=== PATIENT | female | born 1955 | race Caucasian/White ===

== ENCOUNTER 2016-05-24 12:20 | Inpatient (IN) | payer OTHER ==
[~2016-05-24 12:20] MED LIST: BACITRACIN 50,000 UNITS/10 ML SYR IRR ONE; BUPIVACAINE 0.25% 30 ML SDV ONE; BUPIVACAINE/EPI 0.25% 30 ML SDV ONE; THROMBIN (RECOMBINANT) 5,000 UNIT VIAL TP ONE
[2016-05-24] MEDS ORDERED: LR 1,000 ML IV ONE (12:55)
[2016-05-24] MEDS ORDERED: LIDOCAINE 1% 5 ML SDV ID PRN (12:55)
[2016-05-24 13:02] LABS: % IMMATURE GRANULYOCYTES 0.3 % (0.0-1.1); ABSOLUTE IMMATURE GRANULOCYTES 0.03 10^3/uL (0.00-0.10); ADD DIFF? NO; ADD MORPH? NO; ADD SCAN? NO; ATYPICAL LYMPHOCYTE FLAG 0 (0-99); FRAGMENT RBC FLAG 0 (0-99); HEMATOCRIT 44.1 % (38.0-47.0); HEMOGLOBIN 15.5 g/dL (12.6-16.3); LEFT SHIFT FLG 0 (0-99); LIPEMIA HEMOLYSIS FLAG 90 (0-99); MEAN CELL HEMOGLOBIN 30.4 pg (27.9-34.1); MEAN CELL HEMOGLOBIN CONCENTR. 35.1 g/dL (32.4-36.7); MEAN CELL VOLUME 86.5 fL (81.5-99.8); MEAN PLATELET VOLUME 9.4 fL (8.7-11.7); PLATELET CLUMPS FLAG 0 (0-99); PLATELET COUNT 413 10^3/uL (150-400); RED CELL DISTRIBUTION WIDTH 11.9 % (11.5-15.2)
[2016-05-24] MEDS ORDERED: MIDAZOLAM 2 MG/2 ML VIAL ONE (13:04)
[2016-05-24 13:09] LABS: INR 1.02 (0.83-1.16); PROTIME(PATIENT) 13.3 SEC (12.0-15.0)
[2016-05-24] MEDS ORDERED: DEXAMETHASONE 4 MG/ML VIAL ONE (13:17)
[2016-05-24] MEDS ORDERED: ONDANSETRON 4 MG/2 ML VIAL ONE (13:17)
[2016-05-24] MEDS ORDERED: ROCURONIUM 50 MG/5 ML VIAL ONE (13:17)
[2016-05-24] MEDS ORDERED: LIDOCAINE 2% 5 ML SDV ONE (13:17)
[2016-05-24] MEDS ORDERED: PROPOFOL/EMULSION 500 MG/50 ML BOTTLE IV ONE ×2 (13:18→15:05)
[2016-05-24] MEDS ORDERED: fentaNYL 250 MCG/5 ML INJ ONE (13:18)
[2016-05-24] MEDS ORDERED: CEFAZOLIN 2 GM/DEXTROSE/100 ML BAG IV ONE (13:30)
[2016-05-24] MEDS ORDERED: ceFAZolin 2 GM/DEXTROSE 100 ML IV ONE (14:30)
[2016-05-24] MEDS ORDERED: morphINE PF 5 MG/10 ML INJ IT ONE (14:30)
[2016-05-24] MEDS ORDERED: fentaNYL 100 MCG/2 ML INJ IT ONE (14:30)
[2016-05-24] MEDS ORDERED: fentaNYL 100 MCG/2 ML INJ ONE (15:20)
[2016-05-24] MEDS ORDERED: morphINE PF 5 MG/10 ML INJ ONE (15:20)
[2016-05-24] MEDS ORDERED: SUGAMMADEX SODIUM 200 MG/2 ML VIAL IVP ONE (15:49)
[2016-05-24] MEDS ORDERED: ACETAMINOPHEN 325 MG TAB PO PRN (16:04)
[2016-05-24] MEDS ORDERED: HYDROCODONE/APAP 10/325 TAB PO PRN (16:04)
[2016-05-24] MEDS ORDERED: diphenhydrAMINE 25 MG CAP PO PRN (16:04)
[2016-05-24] MEDS ORDERED: HYDROmorphONE/DILAUDID 1 MG/ML SYR IVP PRN (16:04)
[2016-05-24] MEDS ORDERED: BISACODYL 10 MG SUPP PR PRN (16:04)
[2016-05-24] MEDS ORDERED: MAGNESIUM HYDROXIDE 30 ML UDCUP PO PRN (16:04)
[2016-05-24] MEDS ORDERED: ONDANSETRON 4 MG/2 ML VIAL IVP PRN (16:04)
[2016-05-24] MEDS ORDERED: ONDANSETRON DISINTEGRATING 4 MG TAB PO PRN (16:04)
[2016-05-24] MEDS ORDERED: HYDROmorphONE/DILAUDID 6 MG/30 ML PCA IV PRN (16:04)
[2016-05-24] MEDS ORDERED: NALOXONE HCL 0.4 MG/ML INJ IVP PRN (16:04)
[2016-05-24] MEDS ORDERED: LACTULOSE 20 GM/30 ML UDCUP PO PRN (16:04)
[2016-05-24] MEDS ORDERED: oxyCODONE IR 5 MG TAB PO PRN (16:04)
[2016-05-24] MEDS ORDERED: DIAZEPAM 10 MG/2 ML SYR IVP PRN (16:04)
[2016-05-24] MEDS ORDERED: DIAZEPAM 5 MG TAB PO PRN (16:04)
[2016-05-24] MEDS ORDERED: traMADol 50 MG TAB PO PRN (16:05)
--- NOTE | 2016-05-24 16:14 | POSTOPPROG ---
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
[2016-05-24] MEDS ORDERED: NS W/ 20 KCl/L 1,000 ML IV SCH (16:15)
--- NOTE | 2016-05-24 16:16 | SOAPPROG ---
[id number] in am lovovenox starts 05/25 please call with neuro changes 05/24/16 16:14 Subjective: + back pain, no leg pain Objective: Laboratory Results 05/24/16 12:45 PT 13.3 SEC (12.0-15.0) 05/24/16 12:45 INR 1.02 (0.83-1.16) 05/24/16 12:45 awake, alert PERRL, no facial droop JAELYN x 4, left DF 5-/5 better than pre-op + light touch ICD10 Worksheet Patient Problems: Problems Problem Status Diagnosed Fusion of spine of lumbar region Acute - ICD10 Problem Qualifiers (1) Fusion of spine of lumbar region
--- NOTE | 2016-05-24 17:03 | DX ---
Fluoroscopy provided for lumbar spine surgery at 1416 hours Indication: Lumbar spine fusion. Fluoroscopy time: 26.5 seconds. Dose: 17.61 mGy Technique: Two intraoperative AP and crosstable lateral spot views of the lumbar spine. COMPARISON: MRI lumbar spine dated May 06, 2016. Findings: Two intraoperative spot films reveal unilateral posterior fusion construct at L4-L5 and int erspinous fixer device at L4-L5. Impression: Fluoroscopy provided for unilateral posterior fusion at L4-L5.
[2016-05-24] MEDS: morphINE SR 30 MG TAB PO SCH (20:25)
[2016-05-24] MEDS: SENNOSIDES/DOCUSATE SODIUM TAB PO SCH (20:25)
[2016-05-24] MEDS: POLYETHYLENE GLYCOL 3350 17 GM PKT PO SCH (20:26)
[2016-05-24] MEDS ORDERED: FAMOTIDINE 20 MG/NACL 50 ML IV SCH (21:00)
[2016-05-24 23:48] VITALS: O2SAT 94
--- NOTE | 2016-05-25 02:57 | GOP ---
[f rep st] OPERATIVE REPORT DATE OF OPERATION: 05/24/2016 SURGEON: Parrish Cosby MD NEUROSURGEON: Parrish Cosby MD HARNESS MENDER: SENDY Bowles ANESTHESIA: General endotracheal. PREOPERATIVE DIAGNOSIS: Severe degenerative disk disease at L4-5 with large left-sided disk herniati on and L5 root impingement. Intractable low back pain and left lower extremity radicular discomfort. Failed conservative care. Third time re-do surgery. POSTOPERATIVE DIAGNOSIS: Severe degenerative disk disease at L4-5 with large left-sided disk herniat ion and L5 root impingement. Intractable low back pain and left lower extremity radicular discomfort . Failed conservative care. Third time re-do surgery. PROCEDURE PERFORMED: Mini open exposure for left-sided L4-5 far lateral transpedicular decompression with L4-5 posterior nonsegmental (pedicle screw and axle device) fixation and posterolateral fusion with local autograft and bone morphogenic protein. L4-5 posterior/transforaminal lumbar interbody fu gamaliel with 2 structural PEEK interbody spacers, local autograft and bone morphogenic protein. Use of intraoperative microscopy, fluoroscopy, and computer volumetric stereotactic navigation with intraope rative neurophysiologic testing. Injection of intrathecal narcotic analgesics for postoperative pain control. FINDINGS: ESTIMATED BLOOD LOSS: 50 cc. INDICATIONS: The patient is a 60-year-old woman, who has undergone 2 prior left L4-5 micro diskectom ies with 3rd time recurrent intractable low back pain and left lower extremity radicular symptoms and severe loss of disk space height and structural impingement between the pedicles. She presents now for surgical decompression and stabilization through a mini open approach. DESCRIPTION OF PROCEDURE: After informed consent was obtained, the patient was taken to the operatin g room and placed in the prone position on the Yoan table. The lumbosacral area was prepped and d raped in a sterile fashion after fluoroscopic localization of the correct levels. The subcutaneous a nd intramuscular tissues were infiltrated with local anesthesia. A midline linear incision was then created over the L4-5 spinous processes. This was carried down to the fascial layer, which was then incised using monopolar electrocautery and carried in the subperiosteal plane along the spinous proce sses and lamina bilaterally. Intraoperative fluoroscopy was utilized to verify the correct levels. Following this, the dissection was carried out over the facet joints. A left-sided far lateral trans pedicular decompression was then performed. Note that there was an extensive amount of scar tissue, which required meticulous dissection under high-power microscopy in order to avoid a dural tear. The joint was carefully removed, and the lateral L4 and L5 foramen were widely opened. A large disk her niation was found impinging upon the left L5 nerve root that was encased in scar tissue, and this was very carefully dissected out and removed in piecemeal. Once the L4 and L5 nerve roots were freed up , the [employer] neuronavigational system was brought in and, using computer volumetric stereotactic genesis igation, pedicle screws were placed at the L4 and L5 levels on the left. Each individual screw was t ested neurophysiologically with monopolar electrostimulation and interpretation of the potentials by the surgeon. The screw head system was then placed in a slight amount of distraction, during which t lela a complete diskectomy was performed with preparation of the endplates and placement of two 8 mm s tructural PEEK interbody spacers, local autograft, and bone morphogenic protein at the L4-5 level for an L4-5 posterior/transforaminal lumbar interbody fusion. The screw and gallito systems were then place d, and a slight amount of compression in order to facilitate bony union and to minimize the potential for a posterior graft migration. An axial device was then placed in lieu of right-sided pedicle scr ews in order to maximize the bony surface area for the posterolateral fusion and to minimize the ousmane tional risks with pedicle fixation on that side. Following this, the wound was again copiously irrig ated with antibiotic irrigation, and meticulous hemostasis was achieved. The remaining lamina and fa cet joint on the right side were then extensively decorticated, and the residual local autograft erika g with the bone and morphogenic protein was placed out laterally for the posterolateral fusion at the L4-5 level. A drain was then placed. The subcutaneous and intramuscular tissues were re-infiltrate d with local anesthesia. 200 mcg of Duramorph, along with 50 mcg of fentanyl were injected intrathec ally. Biplanar fluoroscopy was utilized to verify good position of the screws, gallito, and interbody sp acers, and interspinous process clamp. The wound was then closed in a layered fashion using interrup daya Vicryl sutures, followed by Steri-Strips. COMPLICATIONS: None. DISPOSITION: The patient is currently in the process of being repositioned for extubation. /[id number]/MODL
[2016-05-25] MEDS: METHOCARBAMOL 750 MG TAB PO PRN ×2 (04:35→11:25)
[2016-05-25 05:04] LABS: % IMMATURE GRANULYOCYTES 0.4 % (0.0-1.1); ABSOLUTE IMMATURE GRANULOCYTES 0.05 10^3/uL (0.00-0.10); ADD DIFF? NO; ADD MORPH? NO; ADD SCAN? NO; ATYPICAL LYMPHOCYTE FLAG 0 (0-99); FRAGMENT RBC FLAG 0 (0-99); HEMATOCRIT 35.1 % (38.0-47.0); HEMOGLOBIN 11.9 g/dL (12.6-16.3); LEFT SHIFT FLG 10 (0-99); LIPEMIA HEMOLYSIS FLAG 90 (0-99); MEAN CELL HEMOGLOBIN 30.2 pg (27.9-34.1); MEAN CELL HEMOGLOBIN CONCENTR. 33.9 g/dL (32.4-36.7); MEAN CELL VOLUME 89.1 fL (81.5-99.8); MEAN PLATELET VOLUME 9.7 fL (8.7-11.7); PLATELET CLUMPS FLAG 0 (0-99); PLATELET COUNT 315 10^3/uL (150-400); RED BLOOD CELL COUNT 3.94 10^6/uL (4.18-5.33); RED CELL DISTRIBUTION WIDTH 11.9 % (11.5-15.2)
[2016-05-25 05:13] LABS: ANION GAP 10 mEq/L (8-16); CALCIUM 9.6 mg/dL (8.5-10.4); CARBON DIOXIDE 24 mEq/l (22-31); CHLORIDE 106 mEq/L (97-110); CREATININE 0.9 mg/dL (0.6-1.0); GLOMERULAR FILTRATION RATE > 60; GLUCOSE 134 mg/dL (70-100); POTASSIUM 4.6 mEq/L (3.5-5.2); SODIUM 140 mEq/L (134-144)
[2016-05-25 07:44] VITALS: RESP 16
[2016-05-25] MEDS: SENNOSIDES/DOCUSATE SODIUM TAB PO SCH (08:31)
[2016-05-25] MEDS: POLYETHYLENE GLYCOL 3350 17 GM PKT PO SCH (08:31)
[2016-05-25] MEDS: morphINE SR 30 MG TAB PO SCH (08:31)
[2016-05-25] MEDS ORDERED: FAMOTIDINE 20 MG TAB PO SCH (09:00)
[2016-05-25] MEDS ORDERED: ENOXAPARIN 40 MG/0.4 ML SYR SC SCH (09:00)
--- NOTE | 2016-05-25 09:16 | NEUSURGPN ---
Date of Surgery: 05/24/16 Post Op Day: 1 Assessment/Plan: POD #1 sp L4/5 TLIF Improved strength in left DF/EHL. No further left leg pain Plan Lumbar xrays today continue DAYANNA drain LSO when out of bed Subjective: out of bed in chair, doing well. Very pleased with the improved strength in her left foot and resolution of left leg pain. Objective: NEURO: GARCIA, Sens +LT ambulated hallway Incision: Dressing- quarter sized area of dried blood DAYANNA: 40ml Urinary Catheter in Place: No - DAYANNA Drain Subfascial Wound Drainage (ml): 40 - Physician Discussed Patient with : Harjeet Neurosurgery Physical Exam - Vitals, I&O, Labs I and O 05/24/16 05/25/16 05/26/16 05:59 05:59 05:59 Intake Total 1670 950 Output Total 115 Balance 1555 950 Weight 68.039 kg Intake: Oral (ml) 770 IV Intake (ml) 900 IV Infused (ml) 950 ceFAZolin 1 GM/DEXTROSE 50 50 ml @ 200 mls/hr IV Q8HRS DRISS Rx#:[id number] NS W/ 20 KCl/L 1,000 ml @ 900 75 mls/hr IV CONT DRISS Rx #:[id number] Output: Estimated Blood Loss (ml) 75 Wound Drainage (ml) 40 Right Back Yoan Ascencio 40 Other: Number of Voids Toilet 1 Vital Signs Temp Pulse Resp BP Pulse Ox 36.8 C 68 16 114/55 L 94 05/25/16 07:40 05/25/16 07:40 05/25/16 07:40 05/25/16 07:40 05/25/16 07:40 Laboratory Results 05/25/16 04:45 05/25/16 04:45 ICD10 Worksheet Patient Problems: Problems Problem Status Diagnosed Fusion of spine of lumbar region Acute
[2016-05-25 12:28] VITALS: BP 130/67; PULSE 66; TEMP 95.7
--- NOTE | 2016-05-25 18:40 | DX ---
Lumbar spine, 2 views HISTORY: L4-L5 diskectomy and fusion. FINDINGS: L4-L5 interbody disk fusion plug with left L4 and L5 transpedicular screws and posterior in terspinous product responsibility liaison noted. Posterior paraspinal drain. Hardware appears intact. Satisfactory alignmen t. Moderate degenerative disk disease at L5-S1 with moderate disk space narrowing and associated osteoph ytes. IMPRESSION: L4-L5 diskectomy with left-sided fusion.
--- NOTE | 2016-06-02 17:24 | GDS ---
[f rep st] DISCHARGE SUMMARY ADMISSION DIAGNOSIS: L4-5 degenerative disk disease, disk herniation, and stenosis. HISTORY AND PHYSICAL: Physical please see admission history and physical. COURSE: Patient is a 60-year-old female, who presented with low back pain and radicular leg pain. S he was taken to the operating room on 05/24/2016, where she underwent an L4-5 transforaminal lumbar i nterbody fusion. There were no intraoperative complications, and she was admitted to the floor for o bservation. On the floor, she was tolerating a regular diet and her pain was controlled with p.o. pa in medications. She was discharged home in stable condition on 05/25/2016. [facility] and recommended she return for neurosurgical followup appointment in 1 0-14 days. /[id number]/MODL
== END 2016-05-25 15:19 | disposition home or self-care (01) | DRG 460 ==
LOC: F3N 12:20 → OBSVTOIN 12:20 → F3N 17:52
PROVIDERS: ADMIT Neurological Surgery; ATTEND Neurological Surgery
PROC: 0QB00ZZ Excision of Lumbar Vertebra, Open Approach (ICD-10-PCS; principal; 2016-05-24 14:00)
PROC: 3E0U0GB Introduction of Recombinant Bone Morphogenetic Protein into Joints, Open Approach (ICD-10-PCS; principal; 2016-05-24 14:00)
PROC: 01NB0ZZ Release Lumbar Nerve, Open Approach (ICD-10-PCS; principal; 2016-05-24 14:00)
PROC: 0SG10AJ Fusion of 2 or more Lumbar Vertebral Joints with Interbody Fusion Device, Posterior Approach, Anterior Column, Open Approach (ICD-10-PCS; principal; 2016-05-24 14:00)
DX: M51.16 Intervertebral disc disorders with radiculopathy, lumbar region (principal)
CPT/HCPCS: 97161-GP; 97165-GO; C1713; J0690; J1100; J1650; J2250; J2274; J2405; J2704; J3010